=== PATIENT | female | born 1970 | race Asian ===

== ENCOUNTER 2018-07-19 23:39 | Inpatient (IN) | payer OTHER ==
[~2018-07-19] VITALS: Ht 160 cm; Wt 679.0 kg
[2018-07-20 00:13] VITALS: Ht 160 cm; Wt 679.0 kg
[2018-07-20 01:27] LABS: BASOPHIL % 1.2 % (0-2); PLATELET COUNT 342 x10^3mcL (130-400)
[2018-07-20 02:07] LABS: CALCIUM 8.5 mg/dL (8.5-10.1); CHLORIDE SERUM 108 mmol/L (98-107); CREATININE SERUM 0.7 mg/dL (0.6-1.0); GFR1 > 60 mL/min; GLUCOSE SERUM 102 mg/dL (74-106); POTASSIUM SERUM 4.4 mmol/L (3.5-5.1); SODIUM SERUM 144 mmol/L (136-145)
[2018-07-20 02:11] LABS: ALKALINE PHOSPHATASE 45 U/L (46-116); ALT/SGPT 19 U/L (14-59); AST/SGOT 10 U/L (15-37); BILIRUBIN TOTAL 0.29 mg/dL (0.20-1.00); TOTAL PROTEIN, SERUM 6.5 g/dL (6.4-8.2)
[2018-07-20 02:16] LABS: ALBUMIN 3.3 g/dL (3.4-5.0)
[2018-07-20 03:03] LABS: UA SPECIFIC GRAVITY 1.015 (1.005-1.035); microscopic required? YES; urine erythrocyte 2+ (NEGATIVE)
[2018-07-20] MEDS ORDERED: HYZAAR1 TA2 PO (04:01)
[2018-07-20] MEDS ORDERED: HUMIRA10 MG/0.1 SQ (04:01)
[2018-07-20] MEDS ORDERED: LIPI10 PO (04:03)
[2018-07-20] MEDS ORDERED: ASPIR 8181 MG PO (04:03)
[2018-07-20] MEDS ORDERED: ARAVA20 MG PO (04:04)
[2018-07-20] MEDS ORDERED: FEOSOL65 M1 PO (04:07)
[2018-07-20] MEDS ORDERED: MASON NATURAL1000 IU PO (04:08)
[2018-07-20] MEDS ORDERED: HUMIRA10 MG/0.2 SC (04:23)
[2018-07-20 08:52] VITALS: BP 100/59
[2018-07-20 09:06] VITALS: BP 100/59
[2018-07-20 17:47] VITALS: BP 109/61
[2018-07-20 21:11] VITALS: BP 120/76
[2018-07-21 06:02] VITALS: BP 102/64
[2018-07-21 07:42] LABS: BASOPHIL % 1.7 % (0-2); PLATELET COUNT 316 x10^3mcL (130-400)
[2018-07-21 08:38] LABS: RED CELL DISTRIBUTION WIDTH 18.2 % (11.5-14.5)
[2018-07-21 09:01] VITALS: BP 115/72
[2018-07-21 13:10] VITALS: BP 115/72
== END 2018-07-21 13:47 | disposition home or self-care (01) | DRG 532 ==
LOC: ED 23:39 → MU 07-20 05:09
PROVIDERS: Emergency Medicine; Internal Medicine Pulmonary Disease
PROC: 30233N1 Transfusion of Nonautologous Red Blood Cells into Peripheral Vein, Percutaneous Approach (ICD-10-PCS; principal; 2018-07-20)
DX: N92.0 Excessive and frequent menstruation with regular cycle (principal); D50.0 Iron deficiency anemia secondary to blood loss (chronic); I10 Essential (primary) hypertension; Z79.82 Long term (current) use of aspirin
CPT/HCPCS: J2916; J7040; J7050; P9016

== ENCOUNTER 2020-01-24 05:38 | Emergency (ER) | payer OTHER ==
[~2020-01-24] VITALS: Ht 157.5 cm; Wt 71.7 kg
[~2020-01-24 05:38] MED LIST: ARAVA20 MG PO; ASPIR 8181 MG PO; FEOSOL65 M1 PO; HUMIRA10 MG/0.1 SQ; HUMIRA10 MG/0.2 SC; HYZAAR1 TA2 PO; LIPI10 PO; MASON NATURAL1000 IU PO
[2020-01-24 05:45] VITALS: Ht 157.5 cm; Wt 71.7 kg
[2020-01-24 08:38] LABS: BASOPHIL % 0.8 % (0-2); PLATELET COUNT 359 x10^3mcL (130-400); RED CELL DISTRIBUTION WIDTH 13.9 % (11.5-14.5)
[2020-01-24 08:54] LABS: UA SPECIFIC GRAVITY 1.015 (1.005-1.035); microscopic required? YES; urine erythrocyte 3+ (NEGATIVE)
[2020-01-24 09:26] LABS: ALBUMIN 3.4 g/dL (3.4-5.0); ALKALINE PHOSPHATASE 55 U/L (46-116); ALT/SGPT 32 U/L (14-59); AST/SGOT 18 U/L (15-37); BILIRUBIN TOTAL 0.34 mg/dL (0.20-1.00); CALCIUM 8.5 mg/dL (8.5-10.1); CHLORIDE SERUM 104 mmol/L (98-107); CREATININE SERUM 0.7 mg/dL (0.6-1.0); GFR1 > 60 mL/min; GLUCOSE SERUM 113 mg/dL (74-106); POTASSIUM SERUM 3.1 mmol/L (3.5-5.1); SODIUM SERUM 138 mmol/L (136-145); TOTAL PROTEIN, SERUM 6.6 g/dL (6.4-8.2)
[2020-01-24 11:09] VITALS: BP 106/70
== END 2020-01-24 11:09 | disposition home or self-care (01) ==
LOC: ED 05:38
PROVIDERS: Specialist
DX: N93.8 Other specified abnormal uterine and vaginal bleeding (principal); M06.9 Rheumatoid arthritis, unspecified; I10 Essential (primary) hypertension; E78.00 Pure hypercholesterolemia, unspecified
CPT/HCPCS: Q0092